=== PATIENT | male | born 2000 | race Caucasian/White ===

== ENCOUNTER 2022-08-30 00:32 | Inpatient (IN) | payer BC, OTHER ==
[~2022-08-30] VITALS: Ht 177.8 cm; Wt 31.3 kg
[2022-08-30 00:35] VITALS: BP 127/79
--- NOTE | 2022-08-30 00:36 | NUR ---
PT JENIFFER EDWARDS. TAKEN TO BED 4
--- NOTE | 2022-08-30 00:37 | NUR ---
Dr. Cruz examining patient.
[2022-08-30 00:41] VITALS: BP 127/79
--- NOTE | 2022-08-30 00:43 | NUR ---
fell in the crowd and landed at left arm in [facility]
--- NOTE | 2022-08-30 01:12 | NUR ---
X-Ray at bedside.
[2022-08-30] MEDS ORDERED: MORPHINE SULFATE 4 MG/ML SYR IVP ONE (03:20)
[2022-08-30] MEDS ORDERED: NACL 0.9% 1,000 ML IV ONE (03:20)
[2022-08-30 03:30] LABS: BASOPHILS % (AUTO) 0.3 % (0.0-2.0); EOSINOPHILS % (AUTO) 0.2 % (0.0-4.0); HEMATOCRIT 44.4 % (36-52); LYMPHOCYTES # (AUTO) 1.4 K/uL (2.0-11.5); LYMPHOCYTES % (AUTO) 13.8 % (20.5-51.1); MEAN CORPUSCULAR HEMOGLOBIN 30 pg (27-31); MEAN CORPUSCULAR HGB CONC 34 g/dL (33-37); MEAN CORPUSCULAR VOLUME 88.1 fL (80-94); MONOCYTES # (AUTO) 0.6 K/uL (0.8-1.0); MONOCYTES % (AUTO) 5.8 % (1.7-9.3); NEUTROPHILS # (AUTO) 8.4 K/uL (1.8-7.7); NEUTROPHILS % (AUTO) 79.9 % (42.2-75.2); PLATELET COUNT (AUTO) 290 K/uL (140-450); RED BLOOD CELL COUNT(AUTO) 5.04 MIL/uL (4.20-6.10); RED CELL DISTRIBUTION WIDTH 13.2 % (11.6-13.7); WHITE BLOOD COUNT (AUTO) 10.5 K/uL (4.5-11.0)
[2022-08-30] MEDS ORDERED: ONDANSETRON 4 MG/2 ML VIAL IM/IVP PRN (03:40)
[2022-08-30] MEDS ORDERED: ONDANSETRON 4 MG/2 ML VIAL IVP ONE (03:40)
[2022-08-30] MEDS ORDERED: ACETAMINOPHEN 325 MG TAB PO PRN (03:40)
[2022-08-30] MEDS ORDERED: NACL 0.9% 1,000 ML IV SCH (03:40)
[2022-08-30] MEDS ORDERED: ZOLPIDEM 5 MG TAB PO PRN (03:40)
[2022-08-30] MEDS ORDERED: HYDROcodone/APAP 7.5/325 MG 1 TAB PO PRN (03:40)
[2022-08-30] MEDS ORDERED: guaiFENesin DM 200/20 MG-10 ML 10 ML UDC PO PRN (03:40)
[2022-08-30] MEDS ORDERED: POTASSIUM CHLORIDE 10 MEQ TABER PO PRN (03:40)
[2022-08-30] MEDS ORDERED: DOCUSATE SODIUM 100 MG GELCAP PO PRN (03:40)
[2022-08-30 03:44] LABS: PROTHROMBIN TIME 10.2 secs (10.8-13.4)
[2022-08-30 03:46] LABS: ALBUMIN 4.9 g/dL (3.4-5.0); ANION GAP 16.5 (8-16); POTASSIUM 3.5 mmol/L (3.5-5.1); TOTAL BILIRUBIN 0.3 mg/dL (0.0-1.0)
[2022-08-30] MEDS ORDERED: KETOROLAC 30 MG/ML VIAL IVP SCH (04:05)
[2022-08-30] MEDS ORDERED: KETOROLAC 30 MG/ML VIAL ONE (04:10)
--- NOTE | 2022-08-30 05:27 | NUR ---
Patient does not wish to proceed with medical care recommended by Anthony. Patient given information related to possible complications, up to and including , which could occur as a result of leaving hospital at this time. Patient verbalizes understanding of risks involved leaving against medical advice. Patient has signed AMA form.
--- NOTE | 2022-08-30 05:27 | NUR ---
PT LEFT AMA AND CD OF X RAY
[2022-08-30] MEDS ORDERED: PANTOPRAZOLE 40 MG TABEC PO SCH (09:00)
== END 2022-08-30 05:27 | disposition left against medical advice (07) | DRG 563 ==
LOC: MED 00:32 → MTU 03:41
PROVIDERS: ADMIT Student in an Organized Health Care Education/Training Program; ATTEND Student in an Organized Health Care Education/Training Program
DX: S52.92XA Unspecified fracture of left forearm, initial encounter for closed fracture (principal); S52.292A Other fracture of shaft of left ulna, initial encounter for closed fracture; W18.39XA Other fall on same level, initial encounter; Z20.822 Contact with and (suspected) exposure to COVID-19; E21.3 Hyperparathyroidism, unspecified; Z53.29 Procedure and treatment not carried out because of patient's decision for other reasons; Y93.89 Activity, other specified; Y92.89 Other specified places as the place of occurrence of the external cause; Y99.8 Other external cause status
CPT/HCPCS: 36415; 71045; 73090; 80053; 85025; 85610; 85730; J1885; J2270; J2405; Q0092